=== PATIENT | male | born 1955 | race African-American/Black ===

== ENCOUNTER 2016-05-21 22:43 | Emergency (ER) | payer MEDICARE, MEDICAID ==
[~2016-05-21 22:43] MED LIST: /GUAIMAX PO; BABY81CH PO; HYDR7.5T33 PO; LISI5TAB PO; NABU-42 PO; NASA0.057; OLYSIO PO; OMEP40CA2 PO; OXYC15TA76 PO; OXYC30TA84 PO; OXYCODONE PO; PEPT262T2 PO; SOVALDI PO; VITA50003 PO; VOLT1GEL2 TOP; [UNRECOGNIZED DRUG - CODE] PO; vitamin d2 PO
[2016-05-21] MEDS ORDERED: KETOROLAC 30 MG/ML VIAL (J1885) As Ordered ONE (23:37)
[2016-05-21] MEDS ORDERED: METHOCARBAMOL 1,000 MG/10 ML VIAL (J2800) As Ordered ONE (23:37)
--- NOTE | 2016-05-22 01:00 | REPUSA ---
CLINICAL HISTORY: Neck pain. TECHNIQUE: Multiple axial images were obtained through the cervical spine. Images were also reconstru cted in coronal and sagittal planes. The study was performed without IV contrast. COMMENTS: Unremarkable cervical fusion metallic hardware. There is no fracture or spondylolisthesis visualized. The paraspinal soft tissues are unremarkable. T here are no lytic or blastic lesions. Straightening of cervical lordosis is seen, suggesting muscular spasm. There is evidence of minimal m ultilevel disk disease, demonstrated by moderate osteophytosis and endplate sclerosis. IMPRESSION: No acute traumatic pathology. No change from the prior exam of 09/20/2012. Thank you for your kind referral of this patient.
--- NOTE | 2016-05-22 01:22 | EDDOCDS ---
Physician Documentation [facility] Name: Xu Xiao Age: 61 yrs Sex: Male : 1955 Arrival Date: 05/21/2016 Time: 22:43 Bed I5 / M5 Private MD: Liat Anderson C Disposition: 05/22/16 01:08 Discharged to Home/Self Care. Impression: Strain of muscle, fascia and tendon at neck level. - Condition is Stable. - Discharge Instructions: Soft Tissue Injury of the Neck. - Prescriptions for Robaxin- 750 750 mg Oral Tablet - take 1 tablet by ORAL route every 6 hours As needed; 40 tablet. etodolac 200 mg Oral Capsule - take 1 capsule by ORAL route 3 times per day; 30 capsule. - Medication Reconciliation, Local Pharmacy Hours form. - Follow up: Liat Anderson; When: Call to arrange an appointment; Reason: Further diagnostic work-up, Recheck today's complaints, Continuance of care. - Problem is an acute exacerbation. - Symptoms are unchanged. Historical: - Allergies: Bactrim; Chocolate; - Home Meds: 1. lisinopril 20 mg Oral tab 1 tab once daily 2. Prilosec OTC 20 mg oral TbEC - PMHx: GERD; Hypertension; - PSHx: neck surgery; - Social history: Smoking status: Patient uses tobacco products, current some day smoker. No barriers to communication noted, The patient speaks fluent Swedish. - Family history: Not pertinent. - : The pt / caregiver states he / she is not on anticoagulants. Home medication list is obtained from the patient. - Exposure Risk Screening:: None identified. Vital Signs: 05/21 22:44 BP 173 / 76; Pulse 69; Resp 18 S; Temp 98.0(O); Pulse Ox 99% on R/A; Weight 78.02 kg / gr2 172 lbs (R); Height 5 ft. 8 in. (172.72 cm) (R); Pain 6/10; 05/22 01:09 BP 150 / 70; Pulse 60; Resp 18; Temp 98.4(O); Pulse Ox 99% on R/A; Pain 0/10; jmb 05/21 22:44 Body Mass Index 26.15 (78.02 kg, 172.72 cm) gr2 MDM: 02/15 23:20 ketorolac 30 mg IM once ordered. btw 23:20 Robaxin 250 mg IM once ordered. btw 23:21 CT Spine,Cervical W/o Contrast Ordered. EDMS 23:39 Financial registration complete. pm4 23:48 [facility] Payment Agreement was scanned into [employer] and attached to record. pm4 Administered Medications: 23:43 Drug: ketorolac 30 mg [ketorolac 30 mg/mL (1 mL) injection solution (1 mL)] Route: IM; jmb Site: left deltoid; 05/22 01:05 Follow up: Response: Pain is resolved [facility] 05/21 23:43 Drug: Robaxin 250 mg [Robaxin 100 mg/mL injection solution (2.5 mL)] Route: IM; Site: jmb right gluteus; 05/22 01:04 Follow up: Response: Pain is resolved [facility] Signatures: Dispatcher [employer] EDMS Domenico Cummings PA PA btw Сергей Black RN RN jmb Carlene Moffett RN RN ms18 Lester Bull, Reg Reg pm4 The chart was reviewed and I authenticate all verbal orders and agree with the evaluation and treatment provided.Attachments: 05/21 23:48 [facility] Payment Agreement pm4 MTDD
--- NOTE | 2016-05-22 01:22 | EDDOCDS ---
Nurse's Notes [facility] Name: Xu Xiao Age: 61 yrs Sex: Male : 1955 Arrival Date: 05/21/2016 Time: 22:43 Bed I5 / M5 Private MD: Liat Anderson C Diagnosis: Strain of muscle, fascia and tendon at neck level Presentation: 05/21 22:54 Presenting complaint: Patient states: that he slipped in some ice around 1400 today and ms18 started to feel pain in his neck tonight. Pt states that in 2006 he had surgery to have a gavino placed in his neck. Risk Factors No acute neurological deficit is noted. Adult Sepsis Screening: The patient does not have new or worsening altered mentation. Patient's respiratory rate is less than 22. Systolic blood pressure is greater than 100. Patient has a qSOFA score of 0- Negative Sepsis Screen. Suicide/Homicide risk assessment- the patient denies having any suicidal and/or homicidal ideations and does not present with any other emotional, behavioral or mental health complaints. Status: Patient is not a environmental services lead or dependent. Transition of care: patient was not received from another setting of care. 22:54 Method Of Arrival: Walkin/Carried/Asstd ms18 22:59 Acuity: ANGELINA Level 4 ms18 Triage Assessment: 22:59 General: Appears in no apparent distress, comfortable, Behavior is appropriate for age, ms18 cooperative. Pain: Location: neck Pain currently is 10 out of 10 on a pain scale. HIV screening NA for this visit Offered previously. Neurological: Level of Consciousness is awake, alert, obeys commands, Oriented to person, place, time. Respiratory: No deficits noted. Derm: Skin is pink, warm & dry. Musculoskeletal: Reports pain in neck. Historical: - Allergies: Bactrim; Chocolate; - Home Meds: 1. lisinopril 20 mg Oral tab 1 tab once daily 2. Prilosec OTC 20 mg oral TbEC - PMHx: GERD; Hypertension; - PSHx: neck surgery; - Social history: Smoking status: Patient uses tobacco products, current some day smoker. No barriers to communication noted, The patient speaks fluent Uzbek. - Family history: Not pertinent. - : The pt / caregiver states he / she is not on anticoagulants. Home medication list is obtained from the patient. - Exposure Risk Screening:: None identified. Screenin/16 00:02 Screening information is obtained from the patient. Fall risk: No risks identified. jmb Assistance ADL's: requires no assistance with activities of daily living. Abuse/DV Screen: The patient / caregiver reports he/she is: not in a situation that causes fear, pain or injury. Nutritional screening: No deficits noted. Advance Directives: Currently, there is no health care proxy. There is no active DNR order. There is no living will. There is no Power of Animal Care Supervisor. home support is adequate. Assessment: 00:02 General: Appears in no apparent distress, Behavior is appropriate for age, cooperative. jmb Pain: Location: neck Pain currently is 8 out of 10 on a pain scale. Neurological: Level of Consciousness is awake, alert, obeys commands, Oriented to person, place, time, Speech is slurred, Facial symmetry appears normal, Facial symmetry: tongue is midline. Cardiovascular: Capillary refill < 3 seconds Heart tones present Pulses are all present. Rhythm is regular. Respiratory: Airway is patent Respiratory effort is even, unlabored, Respiratory pattern is regular, symmetrical, Breath sounds are clear bilaterally. GI: Abdomen is non- distended Bowel sounds present X 4 quads. Abd is soft X 4 quads. Derm: Skin is normal. Musculoskeletal: Range of motion intact in all extremities. 00:56 General: Appears in no apparent distress, comfortable, Behavior is appropriate for age, jmb cooperative. Neurological: Level of Consciousness is awake, alert, obeys commands, Oriented to person, place, time. Respiratory: Airway is patent Respiratory effort is even, unlabored, Respiratory pattern is regular, symmetrical. 01:09 General: Patient instructed on discharge. Patient asked if there were any questions [facility] regarding discharge, patient stated no. Patient signed discharge instructions. Patient discharged in stable condition. . Vital Signs: 05/21 22:44 BP 173 / 76; Pulse 69; Resp 18 S; Temp 98.0(O); Pulse Ox 99% on R/A; Weight 78.02 kg gr2 (R); Height 5 ft. 8 in. (172.72 cm) (R); Pain 6/10; 05/22 01:09 BP 150 / 70; Pulse 60; Resp 18; Temp 98.4(O); Pulse Ox 99% on R/A; Pain 0/10; jmb 05/21 22:44 Body Mass Index 26.15 (78.02 kg, 172.72 cm) gr2 Vitals: 05/21 22:44 Log In Time: May 21, 2016 at 22:44. gr2 ED Course: 22:44 Patient visited by Penny Mejia. gr2 22:44 Liat Anderson is Private Physician. gr2 22:44 Patient moved to Waiting gr2 22:47 Patient visited by Penny Mejia. gr2 22:47 Patient moved to Pre RCE gr2 23:00 Triage Initiated ms18 23:00 Patient moved to Triage 1 ms18 23:12 Domenico Cummings PA is PHCP. btw 23:12 Markie Bailey DO is Attending Physician. btw 23:12 Patient visited by Domenico Cummings PA. btw 23:26 Patient moved to I5 / jmb 23:48 [facility] Payment Agreement was scanned into [employer] and attached to record. pm4 05/22 00:02 The patient / caregiver is instructed regarding the plan of care and ED course. jmb 00:02 No IV's were initiated during this patient's visit. No procedures done that require jmb assistance. 00:04 Patient visited by Сергей Black RN. jmb 00:56 Patient visited by Сергей Black RN. jmb 01:08 Liat Anderson is Referral Physician. btw Administered Medications: 05/21 23:43 Drug: ketorolac 30 mg [ketorolac 30 mg/mL (1 mL) injection solution (1 mL)] Route: IM; jmb Site: left deltoid; 05/22 01:05 Follow up: Response: Pain is resolved b 05/21 23:43 Drug: Robaxin 250 mg [Robaxin 100 mg/mL injection solution (2.5 mL)] Route: IM; Site: jmb right gluteus; 05/22 01:04 Follow up: Response: Pain is resolved jmb Order Results: There are currently no results for this order. Outcome: 00:02 Discharge Assessment: Patient awake, alert and oriented x 3. No cognitive and/or jmb functional deficits noted. Patient verbalized understanding of disposition instructions. Patient awake and alert. obeys commands, Oriented to person, place and time. Patient verbalized understanding of disposition instructions. Patient has no functional deficits. patient administered narcotics - no. 01:08 Discharge ordered by Provider. btw 01:09 The following High Risk Discharge criteria are identified: None. Discharged to home kathy ambulatory. Condition: stable Condition: improved. Discharge instructions given to patient, Instructed on discharge instructions, follow up and referral plans. medication usage, Demonstrated understanding of instructions, medications, Pt was receptive of discharge instructions/ teaching. Prescriptions given X 2. CT Study completed. Property sent home with patient. 01:21 Patient left the ED. kathy Signatures: Domenico Cummings PA PA btw Penny Mejia gr2 Сергей BlackRN RN Carlene Strange RN RN ms18 Lester Bull, Reg Reg pm4 GWYN
--- NOTE | 2016-05-24 02:22 | EDDOCDS ---
Physician Documentation [facility] Name: Xu Xiao Age: 61 yrs Sex: Male : 1955 Arrival Date: 05/21/2016 Time: 22:43 Bed I5 / M5 Private MD: Liat Anderson C Disposition: 05/22/16 01:08 Discharged to Home/Self Care. Impression: Strain of muscle, fascia and tendon at neck level. - Condition is Stable. - Discharge Instructions: Soft Tissue Injury of the Neck. - Prescriptions for Robaxin- 750 750 mg Oral Tablet - take 1 tablet by ORAL route every 6 hours As needed; 40 tablet. etodolac 200 mg Oral Capsule - take 1 capsule by ORAL route 3 times per day; 30 capsule. - Medication Reconciliation, Local Pharmacy Hours form. - Follow up: Liat Anderson; When: Call to arrange an appointment; Reason: Further diagnostic work-up, Recheck today's complaints, Continuance of care. - Problem is an acute exacerbation. - Symptoms are unchanged. Historical: - Allergies: Bactrim; Chocolate; - Home Meds: 1. lisinopril 20 mg Oral tab 1 tab once daily 2. Prilosec OTC 20 mg oral TbEC - PMHx: GERD; Hypertension; - PSHx: neck surgery; - Social history: Smoking status: Patient uses tobacco products, current some day smoker. No barriers to communication noted, The patient speaks fluent Tuvaluan. - Family history: Not pertinent. - : The pt / caregiver states he / she is not on anticoagulants. Home medication list is obtained from the patient. - Exposure Risk Screening:: None identified. Vital Signs: 05/21 22:44 BP 173 / 76; Pulse 69; Resp 18 S; Temp 98.0(O); Pulse Ox 99% on R/A; Weight 78.02 kg / gr2 172 lbs (R); Height 5 ft. 8 in. (172.72 cm) (R); Pain 6/10; 05/22 01:09 BP 150 / 70; Pulse 60; Resp 18; Temp 98.4(O); Pulse Ox 99% on R/A; Pain 0/10; jmb 05/21 22:44 Body Mass Index 26.15 (78.02 kg, 172.72 cm) gr2 MDM: 02/15 23:20 ketorolac 30 mg IM once ordered. btw 23:20 Robaxin 250 mg IM once ordered. btw 23:21 CT Spine,Cervical W/o Contrast Ordered. EDMS 23:39 Financial registration complete. pm4 23:48 [facility] Payment Agreement was scanned into [employer] and attached to record. pm4 05/22 10:41 T-Sheet-- Draft Copy was scanned into [employer] and attached to record. gb Administered Medications: 05/21 23:43 Drug: ketorolac 30 mg [ketorolac 30 mg/mL (1 mL) injection solution (1 mL)] Route: IM; b Site: left deltoid; 05/22 01:05 Follow up: Response: Pain is resolved [facility] 05/21 23:43 Drug: Robaxin 250 mg [Robaxin 100 mg/mL injection solution (2.5 mL)] Route: IM; Site: jmb right gluteus; 05/22 01:04 Follow up: Response: Pain is resolved [facility] Signatures: Dispatcher [employer] EDMS Ana Paula Mcbride, Reg Reg gb Domenico Cummings PA PA btw Сергей BlackRN RN jmb Carlene Moffett RN RN ms18 Lester Bull, Reg Reg pm4 The chart was reviewed and I authenticate all verbal orders and agree with the evaluation and treatment provided.Attachments: 05/21 23:48 [facility] Payment Agreement pm4 05/22 10:41 T-Sheet-- Draft Copy gb Chart Complete MTDD
--- NOTE | 2016-05-24 02:22 | EDDOCDS ---
Physician Documentation [facility] Name: Xu Xiao Age: 61 yrs Sex: Male : 1955 Arrival Date: 05/21/2016 Time: 22:43 Bed I5 / M5 Private MD: Liat Anderson C Disposition: 05/22/16 01:08 Discharged to Home/Self Care. Impression: Strain of muscle, fascia and tendon at neck level. - Condition is Stable. - Discharge Instructions: Soft Tissue Injury of the Neck. - Prescriptions for Robaxin- 750 750 mg Oral Tablet - take 1 tablet by ORAL route every 6 hours As needed; 40 tablet. etodolac 200 mg Oral Capsule - take 1 capsule by ORAL route 3 times per day; 30 capsule. - Medication Reconciliation, Local Pharmacy Hours form. - Follow up: Liat Anderson; When: Call to arrange an appointment; Reason: Further diagnostic work-up, Recheck today's complaints, Continuance of care. - Problem is an acute exacerbation. - Symptoms are unchanged. Historical: - Allergies: Bactrim; Chocolate; - Home Meds: 1. lisinopril 20 mg Oral tab 1 tab once daily 2. Prilosec OTC 20 mg oral TbEC - PMHx: GERD; Hypertension; - PSHx: neck surgery; - Social history: Smoking status: Patient uses tobacco products, current some day smoker. No barriers to communication noted, The patient speaks fluent Grenadian. - Family history: Not pertinent. - : The pt / caregiver states he / she is not on anticoagulants. Home medication list is obtained from the patient. - Exposure Risk Screening:: None identified. Vital Signs: 05/21 22:44 BP 173 / 76; Pulse 69; Resp 18 S; Temp 98.0(O); Pulse Ox 99% on R/A; Weight 78.02 kg / gr2 172 lbs (R); Height 5 ft. 8 in. (172.72 cm) (R); Pain 6/10; 05/22 01:09 BP 150 / 70; Pulse 60; Resp 18; Temp 98.4(O); Pulse Ox 99% on R/A; Pain 0/10; jmb 05/21 22:44 Body Mass Index 26.15 (78.02 kg, 172.72 cm) gr2 MDM: 02/15 23:20 ketorolac 30 mg IM once ordered. btw 23:20 Robaxin 250 mg IM once ordered. btw 23:21 CT Spine,Cervical W/o Contrast Ordered. EDMS 23:39 Financial registration complete. pm4 23:48 [facility] Payment Agreement was scanned into [employer] and attached to record. pm4 05/22 10:41 T-Sheet-- Draft Copy was scanned into [employer] and attached to record. gb Administered Medications: 05/21 23:43 Drug: ketorolac 30 mg [ketorolac 30 mg/mL (1 mL) injection solution (1 mL)] Route: IM; b Site: left deltoid; 05/22 01:05 Follow up: Response: Pain is resolved [facility] 05/21 23:43 Drug: Robaxin 250 mg [Robaxin 100 mg/mL injection solution (2.5 mL)] Route: IM; Site: jmb right gluteus; 05/22 01:04 Follow up: Response: Pain is resolved [facility] Signatures: Dispatcher [employer] EDMS Ana Paula Mcbride, Reg Reg gb Domenico Cummings PA PA btw Сергей BlackRN RN jmb Carlene Mofftet RN RN ms18 Lester Bull, Reg Reg pm4 The chart was reviewed and I authenticate all verbal orders and agree with the evaluation and treatment provided.Attachments: 05/21 23:48 [facility] Payment Agreement pm4 05/22 10:41 T-Sheet-- Draft Copy gb Chart Complete MTDD
--- NOTE | 2016-05-24 02:22 | EDDOCDS ---
Nurse's Notes [facility] Name: Xu Xiao Age: 61 yrs Sex: Male : 1955 Arrival Date: 05/21/2016 Time: 22:43 Bed I5 / M5 Private MD: Liat Anderson C Diagnosis: Strain of muscle, fascia and tendon at neck level Presentation: 05/21 22:54 Presenting complaint: Patient states: that he slipped in some ice around 1400 today and ms18 started to feel pain in his neck tonight. Pt states that in 2006 he had surgery to have a gavino placed in his neck. Risk Factors No acute neurological deficit is noted. Adult Sepsis Screening: The patient does not have new or worsening altered mentation. Patient's respiratory rate is less than 22. Systolic blood pressure is greater than 100. Patient has a qSOFA score of 0- Negative Sepsis Screen. Suicide/Homicide risk assessment- the patient denies having any suicidal and/or homicidal ideations and does not present with any other emotional, behavioral or mental health complaints. Status: Patient is not a financial services intern or dependent. Transition of care: patient was not received from another setting of care. 22:54 Method Of Arrival: Walkin/Carried/Asstd ms18 22:59 Acuity: ANGELINA Level 4 ms18 Triage Assessment: 22:59 General: Appears in no apparent distress, comfortable, Behavior is appropriate for age, ms18 cooperative. Pain: Location: neck Pain currently is 10 out of 10 on a pain scale. HIV screening NA for this visit Offered previously. Neurological: Level of Consciousness is awake, alert, obeys commands, Oriented to person, place, time. Respiratory: No deficits noted. Derm: Skin is pink, warm & dry. Musculoskeletal: Reports pain in neck. Historical: - Allergies: Bactrim; Chocolate; - Home Meds: 1. lisinopril 20 mg Oral tab 1 tab once daily 2. Prilosec OTC 20 mg oral TbEC - PMHx: GERD; Hypertension; - PSHx: neck surgery; - Social history: Smoking status: Patient uses tobacco products, current some day smoker. No barriers to communication noted, The patient speaks fluent Uzbek. - Family history: Not pertinent. - : The pt / caregiver states he / she is not on anticoagulants. Home medication list is obtained from the patient. - Exposure Risk Screening:: None identified. Screenin/16 00:02 Screening information is obtained from the patient. Fall risk: No risks identified. jmb Assistance ADL's: requires no assistance with activities of daily living. Abuse/DV Screen: The patient / caregiver reports he/she is: not in a situation that causes fear, pain or injury. Nutritional screening: No deficits noted. Advance Directives: Currently, there is no health care proxy. There is no active DNR order. There is no living will. There is no Power of Collar Closer Lockstitch. home support is adequate. Assessment: 00:02 General: Appears in no apparent distress, Behavior is appropriate for age, cooperative. jmb Pain: Location: neck Pain currently is 8 out of 10 on a pain scale. Neurological: Level of Consciousness is awake, alert, obeys commands, Oriented to person, place, time, Speech is slurred, Facial symmetry appears normal, Facial symmetry: tongue is midline. Cardiovascular: Capillary refill < 3 seconds Heart tones present Pulses are all present. Rhythm is regular. Respiratory: Airway is patent Respiratory effort is even, unlabored, Respiratory pattern is regular, symmetrical, Breath sounds are clear bilaterally. GI: Abdomen is non- distended Bowel sounds present X 4 quads. Abd is soft X 4 quads. Derm: Skin is normal. Musculoskeletal: Range of motion intact in all extremities. 00:56 General: Appears in no apparent distress, comfortable, Behavior is appropriate for age, jmb cooperative. Neurological: Level of Consciousness is awake, alert, obeys commands, Oriented to person, place, time. Respiratory: Airway is patent Respiratory effort is even, unlabored, Respiratory pattern is regular, symmetrical. 01:09 General: Patient instructed on discharge. Patient asked if there were any questions [facility] regarding discharge, patient stated no. Patient signed discharge instructions. Patient discharged in stable condition. . Vital Signs: 05/21 22:44 BP 173 / 76; Pulse 69; Resp 18 S; Temp 98.0(O); Pulse Ox 99% on R/A; Weight 78.02 kg gr2 (R); Height 5 ft. 8 in. (172.72 cm) (R); Pain 6/10; 05/22 01:09 BP 150 / 70; Pulse 60; Resp 18; Temp 98.4(O); Pulse Ox 99% on R/A; Pain 0/10; b 05/21 22:44 Body Mass Index 26.15 (78.02 kg, 172.72 cm) gr2 Vitals: 05/21 22:44 Log In Time: May 21, 2016 at 22:44. gr2 ED Course: 22:44 Patient visited by Penny Mejia. gr2 22:44 Liat Anderson is Private Physician. gr2 22:44 Patient moved to Waiting gr2 22:47 Patient visited by Penny Mejia. gr2 22:47 Patient moved to Pre RCE gr2 23:00 Triage Initiated ms18 23:00 Patient moved to Triage 1 ms18 23:12 Domenico Cummings PA is PHCP. btw 23:12 Markie Bailey DO is Attending Physician. btw 23:12 Patient visited by Domenico Cummings PA. btw 23:26 Patient moved to I5 / jmb 23:48 [facility] Payment Agreement was scanned into [email or web address] and attached to record. pm4 05/22 00:02 The patient / caregiver is instructed regarding the plan of care and ED course. jmb 00:02 No IV's were initiated during this patient's visit. No procedures done that require b assistance. 00:04 Patient visited by Сергей Black RN. jmb 00:56 Patient visited by Сергей Black RN. jmb 01:08 Liat Anderson is Referral Physician. btw 01:22 CT Spine,Cervical W/o Contrast Returned. EDMS 10:41 T-Sheet-- Draft Copy was scanned into [email or web address] and attached to record. gb Administered Medications: 05/21 23:43 Drug: ketorolac 30 mg [ketorolac 30 mg/mL (1 mL) injection solution (1 mL)] Route: IM; jmb Site: left deltoid; 05/22 01:05 Follow up: Response: Pain is resolved [facility] 05/21 23:43 Drug: Robaxin 250 mg [Robaxin 100 mg/mL injection solution (2.5 mL)] Route: IM; Site: jmb right gluteus; 05/22 01:04 Follow up: Response: Pain is resolved b Order Results: Radiology Order: CT Spine,Cervical W/o Contrast Test: CT Spine,Cervical W/o Contrast REASON FOR EXAMINATION: Trauma; ; CLINICAL HISTORY: Neck pain.; TECHNIQUE: Multiple axial images were obtained through the cervical spine. Images were also reconstru; cted in coronal and sagittal planes. The study was performed without IV contrast.; COMMENTS:; Unremarkable cervical fusion metallic hardware.; There is no fracture or spondylolisthesis visualized. The paraspinal soft tissues are unremarkable. T; here are no lytic or blastic lesions.; Straightening of cervical lordosis is seen, suggesting muscular spasm. There is evidence of minimal m; ultilevel disk disease, demonstrated by moderate osteophytosis and endplate sclerosis.; IMPRESSION:; No acute traumatic pathology.; No change from the prior exam of 09/20/2012.; Thank you for your kind referral of this patient.; ; Outcome: 00:02 Discharge Assessment: Patient awake, alert and oriented x 3. No cognitive and/or jmb functional deficits noted. Patient verbalized understanding of disposition instructions. Patient awake and alert. obeys commands, Oriented to person, place and time. Patient verbalized understanding of disposition instructions. Patient has no functional deficits. patient administered narcotics - no. 01:08 Discharge ordered by Provider. btw 01:09 The following High Risk Discharge criteria are identified: None. Discharged to home jmb ambulatory. Condition: stable Condition: improved. Discharge instructions given to patient, Instructed on discharge instructions, follow up and referral plans. medication usage, Demonstrated understanding of instructions, medications, Pt was receptive of discharge instructions/ teaching. Prescriptions given X 2. CT Study completed. Property sent home with patient. 01:21 Patient left the ED. [facility] Signatures: Dispatcher [employer] EDMS Ana Paula Mcbride, Reg Reg gb Domenico Cummings PA PA btw Penny Mejia gr2 Сергей Black RN RN Carlene Strange RN RN ms18 Lester Bull, Reg Reg pm4 Chart Complete MTDD
== END 2016-05-22 01:21 | disposition home or self-care (01) ==
LOC: M ED 22:43
DX: S16.1XXA Strain of muscle, fascia and tendon at neck level, initial encounter (principal); W01.10XA Fall on same level from slipping, tripping and stumbling with subsequent striking against unspecified object, initial encounter; Y92.019 Unspecified place in single-family (private) house as the place of occurrence of the external cause; Y93.89 Activity, other specified; Y99.9 Unspecified external cause status; K21.9 Gastro-esophageal reflux disease without esophagitis; I10 Essential (primary) hypertension; Z72.0 Tobacco use; Z79.899 Other long term (current) drug therapy; Z88.1 Allergy status to other antibiotic agents; Z91.018 Allergy to other foods
CPT/HCPCS: 72125; 96372; 99284; J1885; J2800

== ENCOUNTER → 2017-03-25 | Outpatient (REF) | payer MEDICARE, MEDICAID ==
[~2017-03-25] MED LIST changes: +AMLO5TAB2; +ISON300T4; +VITA1CAP40 PO; -VITA50003 PO; +Vitamin
[2017-03-25 14:33] LABS: BASO # 0.1 10^3/uL (0.0-0.2); BASO % 1.1 % (0.0-1.0); EOS # 0.1 10^3/uL (0.0-0.50); IMMATURE GRANULOCYTE % 0.2 % (0-0); LYMPH # 1.6 10^3/uL (1.5-4.5); LYMPH % 36.1 % (24.0-44.0); MEAN CORPUSCULAR HEMOGLOBIN 26.8 pg (27.0-33.0); MEAN CORPUSCULAR HGB CONC 32.6 g/dl (32.0-36.5); MEAN CORPUSCULAR VOLUME 82.2 fl (80.0-96.0); MONO # 0.5 10^3/uL (0.0-0.8); MONO % 10.7 % (0.0-5.0); NEUTROPHILS # 2.1 10^3/uL (1.8-7.7); NEUTROPHILS % 48.9 % (36.0-66.0); PLATELET COUNT, AUTOMATED 281 10^3/uL (150-450); RED CELL DISTRIBUTION WIDTH 13.3 % (11.5-14.5); WHITE BLOOD COUNT 4.4 10^3/uL (4.0-10.0)
[2017-03-25 15:26] LABS: ALBUMIN 4.1 GM/DL (3.2-5.2); ALBUMIN/GLOBULIN RATIO 1.11 (1.00-1.93); ALKALINE PHOSPHATASE 54 U/L (45-117); ALT/SGPT 32 U/L (12-78); ANION GAP 6 MEQ/L (8-16); AST/SGOT 28 U/L (7-37); BILIRUBIN,TOTAL 0.5 MG/DL (0.2-1.0); BLOOD UREA NITROGEN 21 MG/DL (7-18); CALCIUM LEVEL 8.6 MG/DL (8.8-10.2); CARBON DIOXIDE LEVEL 29 MEQ/L (21-32); CHLORIDE LEVEL 105 MEQ/L (98-107); CHOLESTEROL LEVEL 122 MG/DL (<200); CREATININE FOR GFR 1.44 MG/DL (0.70-1.30); GLOMERULAR FILTRATION RATE > 60.0 (>49); GLUCOSE, FASTING 97 MG/DL (80-110); POTASSIUM SERUM 4.2 MEQ/L (3.5-5.1); SODIUM LEVEL 140 MEQ/L (136-145); TOTAL PROTEIN 7.8 GM/DL (6.4-8.2); TRIGLYCERIDES LEVEL 22 MG/DL (<150)
[2017-03-27 10:16] LABS: HEPATITIS C QUANTITATION HCV Not Detected IU/mL (.)
== END ==
LOC: M LAB REF 13:34
PROVIDERS: ATTEND Nurse Practitioner Adult Health
DX: B17.10 Acute hepatitis C without hepatic coma (principal); I10 Essential (primary) hypertension; Z79.899 Other long term (current) drug therapy

== ENCOUNTER 2017-03-29 00:13 | Emergency (ER) | payer MEDICARE, MEDICAID ==
[~2017-03-29] VITALS: Ht 170.2 cm; Wt 77.3 kg
[~2017-03-29 00:13] MED LIST changes: -AMLO5TAB2; -ISON300T4; -Vitamin
[2017-03-29 00:14] VITALS: BP 156/96
[2017-03-29] MEDS ORDERED: Vitamin (00:21)
[2017-03-29] MEDS ORDERED: ISON300T4 (00:21)
[2017-03-29] MEDS ORDERED: AMLO5TAB2 (00:21)
== END 2017-03-29 01:03 | disposition home or self-care (01) ==
LOC: M ED 00:13
DX: S31.134A Puncture wound of abdominal wall without foreign body, left lower quadrant without penetration into peritoneal cavity, initial encounter (principal); Z72.0 Tobacco use; W26.0XXA Contact with knife, initial encounter; Y92.099 Unspecified place in other non-institutional residence as the place of occurrence of the external cause; Y93.G3 Activity, cooking and baking; Y99.9 Unspecified external cause status

== ENCOUNTER → 2020-09-06 | Outpatient (CLI) | payer MEDICAID, MEDICARE ==
[~2020-09-06] MED LIST changes: +AMLO1TAB24; +ISON300T18; -OMEP40CA2 PO; +OMEP40CA97 PO; +OXYC-1 PO; -OXYC15TA76 PO; -VITA1CAP40 PO; +VITA50005 PO; +Vitamin
--- NOTE | 2020-09-06 10:59 | REP ---
INDICATION: ACUTE HEP C COMPARISON: 10/14/2012 TECHNIQUE: Real time zimmerman scale ultrasound examination using curved array transducer. FINDINGS: Liver is normal in contour, size, and echogenicity without focal hepatic lesions identified. Pancreas is incompletely evaluated due to interposed bowel gas. The gallbladder is normal and without gallstones, wall thickening, or pericholecystic fluid. No biliary ductal dilatation is appreciated and the common bile duct measures 3.0 mm diameter. Right kidney is normal in reniform shape without hydronephrosis and measures 10.4 x 4.2 x 4.3 cm. No ascites in the visualized right upper quadrant. IMPRESSION: Normal limited right upper quadrant ultrasound <Electronically signed by Reuben Spangler > 09/06/20 [id number]
== END ==
LOC: M RAD 10:16
PROVIDERS: ATTEND Pediatrics
DX: B17.10 Acute hepatitis C without hepatic coma (principal)

== ENCOUNTER → 2020-09-24 | Outpatient (CLI) | payer OTHER ==
[~2020-09-24] MED LIST changes: +OMEP40CA4 PO; -OMEP40CA97 PO
--- NOTE | 2020-09-24 14:48 | REP ---
INDICATION: TUBERCULOSIS. COMPARISON: 02/11/2016 FINDINGS: The superior mediastinal structures are midline. The cardiac silhouette is unremarkable in size, shape, and position. The diaphragmatic surfaces of the lungs are regular, and the costophrenic angles are clear. The pulmonary montiel are clear. The imaged osseous structures are unchanged. Lower cervical and upper thoracic spinal fixation is again noted status quo. IMPRESSION: There is no acute cardiopulmonary disease. <Electronically signed by Antonio Stack > 09/24/20 [id number]
== END ==
LOC: M WUC 14:16
PROVIDERS: ATTEND Surgery
DX: A15.0 Tuberculosis of lung (principal)

== ENCOUNTER → 2022-03-05 | Outpatient (REF) | payer MEDICARE, MEDICAID ==
[2022-03-05 18:14] LABS: BASO # 0.1 10^3/uL (0.0-0.2); BASO % 1.2 % (0.0-1.0); EOS # 0.1 10^3/uL (0.0-0.5); EOS % 2.8 % (0.0-3.0); HEMATOCRIT 40.3 % (42.0-52.0); HEMOGLOBIN 12.8 g/dl (13.5-17.5); LYMPH # 1.5 10^3/uL (1.5-5.0); LYMPH % 30.1 % (24.0-44.0); MEAN CORPUSCULAR HEMOGLOBIN 26.9 pg (27.0-33.0); MEAN CORPUSCULAR HGB CONC 31.8 g/dl (32.0-36.5); MEAN CORPUSCULAR VOLUME 84.8 fl (80.0-96.0); MONO # 0.6 10^3/uL (0.0-0.8); MONO % 11.6 % (2.0-8.0); NEUTROPHILS # 2.8 10^3/uL (1.5-8.5); NEUTROPHILS % 54.1 % (36.0-66.0); PLATELET COUNT, AUTOMATED 259 10^3/uL (150-450); RED BLOOD COUNT 4.75 10^6/uL (4.30-6.10); WHITE BLOOD COUNT 5.1 10^3/uL (4.0-10.0)
[2022-03-05 22:27] LABS: ALBUMIN 3.9 G/DL (3.2-5.2); ALKALINE PHOSPHATASE 64 U/L (46-116); ALT/SGPT 21 U/L (7.0-40); AST/SGOT 20 U/L (<34); BILIRUBIN,DIRECT 0.1 MG/DL (<0.4); BILIRUBIN,TOTAL 0.3 MG/DL (0.3-1.2); TOTAL PROTEIN 7.2 G/DL (5.7-8.2)
[2022-03-05 22:30] LABS: THYROGLOBULIN ANTIBODY < 15.0 U/ML (<60.0)
[2022-03-05 22:31] LABS: FREE T4 1.34 NG/DL (0.89-1.76); THYROID PEROXIDASE ANTIBODY < 28.0 U/ML (<60.0)
[2022-03-05 22:36] LABS: THYROID STIMULATING HORMONE 0.577 uIU/ML (0.55-4.78)
== END ==
LOC: M LAB REF 17:31
PROVIDERS: ATTEND Pediatrics
DX: R79.89 Other specified abnormal findings of blood chemistry (principal); F10.10 Alcohol abuse, uncomplicated

== ENCOUNTER → 2022-03-14 | Outpatient (CLI) | payer MEDICARE, MEDICAID | LOC: M RAD 15:37 | PROVIDERS: ATTEND Pediatrics | DX: R79.89 Other specified abnormal findings of blood chemistry (principal) ==

== ENCOUNTER → 2022-04-29 | Outpatient (CLI) | payer MEDICAID | LOC: M LAB 13:01 | PROVIDERS: ATTEND Nurse Practitioner Family | DX: M96.1 Postlaminectomy syndrome, not elsewhere classified (principal) ==

== ENCOUNTER → 2022-05-05 | Outpatient (REF) | payer MEDICARE, MEDICAID ==
[2022-05-05 17:17] LABS: BASO # 0.1 10^3/uL (0.0-0.2); BASO % 1.2 % (0.0-1.0); EOS # 0.1 10^3/uL (0.0-0.5); EOS % 2.7 % (0.0-3.0); HEMATOCRIT 46.1 % (42.0-52.0); HEMOGLOBIN 14.4 g/dl (13.5-17.5); LYMPH # 1.2 10^3/uL (1.5-5.0); LYMPH % 29.2 % (24.0-44.0); MEAN CORPUSCULAR HEMOGLOBIN 26.4 pg (27.0-33.0); MEAN CORPUSCULAR HGB CONC 31.2 g/dl (32.0-36.5); MEAN CORPUSCULAR VOLUME 84.6 fl (80.0-96.0); MONO # 0.5 10^3/uL (0.0-0.8); MONO % 11.3 % (2.0-8.0); NEUTROPHILS # 2.3 10^3/uL (1.5-8.5); NEUTROPHILS % 55.4 % (36.0-66.0); PLATELET COUNT, AUTOMATED 252 10^3/uL (150-450); RED BLOOD COUNT 5.45 10^6/uL (4.30-6.10); WHITE BLOOD COUNT 4.1 10^3/uL (4.0-10.0)
[2022-05-05 17:47] LABS: ALKALINE PHOSPHATASE 72 U/L (46-116); ALT/SGPT 32 U/L (7.0-40); AST/SGOT 27 U/L (<34); BILIRUBIN,DIRECT 0.2 MG/DL (<0.4); BILIRUBIN,TOTAL 0.4 MG/DL (0.3-1.2); BLOOD UREA NITROGEN 16 MG/DL (9-23); CALCIUM LEVEL 9.5 MG/DL (8.3-10.6); CARBON DIOXIDE LEVEL 25 MMOL/L (20-31); CHLORIDE LEVEL 103 MMOL/L (98-107); CHOLESTEROL LEVEL 144 MG/DL (<200); CHOLESTEROL RISK RATIO 2.03 (<5); CREATININE FOR GFR 1.08 MG/DL (0.70-1.30); GLOMERULAR FILTRATION RATE > 60.0 (>49); GLUCOSE, FASTING 83 MG/DL (74-106); HDL CHOLESTEROL 70.6 MG/DL (>40); LDL CHOLESTEROL 64.4 MG/DL (<100); NON-HDL-C 73 MG/DL; POTASSIUM SERUM 4.7 MMOL/L (3.5-5.1); SODIUM LEVEL 136 MMOL/L (136-145); TOTAL PROTEIN 7.7 G/DL (5.7-8.2); TRIGLYCERIDES LEVEL 45 MG/DL (<150)
== END ==
LOC: M LAB REF 16:15
PROVIDERS: ATTEND Pediatrics
DX: F10.10 Alcohol abuse, uncomplicated (principal); I10 Essential (primary) hypertension; E66.3 Overweight; Z12.5 Encounter for screening for malignant neoplasm of prostate
CPT/HCPCS: 80048; 80061; 80076; 82977; 85025; G0103

== ENCOUNTER → 2022-05-19 | Outpatient (CLI) | payer MEDICARE, MEDICAID | LOC: M PLAIMG 10:16 | PROVIDERS: ATTEND Nurse Practitioner Family | DX: M96.1 Postlaminectomy syndrome, not elsewhere classified (principal) ==

== ENCOUNTER → 2022-05-23 | Outpatient (CLI) | payer MEDICARE, MEDICAID | LOC: M PLARAD 08:21 | PROVIDERS: ATTEND Nurse Practitioner Family | DX: M54.12 Radiculopathy, cervical region (principal); M48.02 Spinal stenosis, cervical region ==

== ENCOUNTER → 2022-11-04 | Outpatient (CLI) | payer OTHER, MEDICAID ==
[~2022-11-04] MED LIST changes: +AMLO10TA PO
== END ==
LOC: M RAD 10:35
PROVIDERS: ATTEND Pediatrics
DX: R14.0 Abdominal distension (gaseous) (principal); R93.5 Abnormal findings on diagnostic imaging of other abdominal regions, including retroperitoneum

== ENCOUNTER 2023-12-15 22:14 | Emergency (ER) | payer OTHER, MEDICAID ==
[~2023-12-15] VITALS: Ht 170.2 cm; Wt 68.0 kg
[2023-12-15 22:15] VITALS: BP 168/86; TEMP 97.2; O2SAT 99
== END 2023-12-15 23:50 | disposition left against medical advice (07) ==
LOC: M ED 22:14
DX: Z53.21 Procedure and treatment not carried out due to patient leaving prior to being seen by health care provider (principal)

== ENCOUNTER → 2024-02-17 | Outpatient (CLI) | payer OTHER, MEDICAID | LOC: M RAD 12:27 | PROVIDERS: ATTEND Family Medicine Addiction Medicine | DX: M54.2 Cervicalgia (principal); M85.88 Other specified disorders of bone density and structure, other site; M51.34 Other intervertebral disc degeneration, thoracic region; M43.22 Fusion of spine, cervical region ==

== ENCOUNTER → 2024-09-26 | Outpatient (CLI) | payer OTHER, MEDICAID ==
[~2024-09-26] MED LIST changes: +AMLO-751 PO; -AMLO10TA PO; +HYDR-3490 PO; +ISON1TAB5; -ISON300T18; +LISI40TA10 PO; +OXYC10TA3 PO; +[UNRECOGNIZED DRUG - OTHER]
== END ==
LOC: M EKG 14:42
PROVIDERS: ATTEND Emergency Medicine
DX: I44.1 Atrioventricular block, second degree (principal)

== ENCOUNTER 2024-10-08 08:23 | Emergency (ER) | payer OTHER, MEDICAID ==
[~2024-10-08] VITALS: Ht 170.2 cm; Wt 69.0 kg
[2024-10-08 08:57] LABS: BASO # 0.1 10^3/uL (0.0-0.2); BASO % 1.2 % (0.0-1.0); EOS # 0.1 10^3/uL (0.0-0.5); EOS % 3.3 % (0.0-3.0); LYMPH # 1.6 10^3/uL (1.5-5.0); LYMPH % 37.0 % (24.0-44.0); MONO # 0.4 10^3/uL (0.0-0.8); MONO % 8.9 % (2.0-8.0); NEUTROPHILS # 2.1 10^3/uL (1.5-8.5); NEUTROPHILS % 49.4 % (36.0-66.0); PLATELET COUNT, AUTOMATED 206 10^3/uL (150-450)
[2024-10-08 09:06] LABS: INR 1.14
[2024-10-08 09:18] LABS: CALCIUM LEVEL 9.1 MG/DL (8.3-10.6); CARBON DIOXIDE LEVEL 29.0 MMOL/L (20-31); CHLORIDE LEVEL 106.0 MMOL/L (98-107); CREATININE FOR GFR 1.48 MG/DL (0.70-1.30); GLOMERULAR FILTRATION RATE 51.2 (>49); MAGNESIUM LEVEL 2.1 MG/DL (1.8-2.4); POTASSIUM SERUM 4.3 MMOL/L (3.5-5.1); SODIUM LEVEL 142.0 MMOL/L (136-145)
[2024-10-08 09:21] LABS: FREE T4 1.39 NG/DL (0.89-1.76)
[2024-10-08] MEDS ORDERED: HOME MED LIST COMPLETE! XX SCH (09:45)
[2024-10-08] MEDS: NS (Normal Saline) 0.9% 1,000 ML IV ONE (10:15)
[2024-10-08 11:39] VITALS: BP 160/93
[2024-10-08] MEDS: hydroCHLOROthiazide 25 MG TAB PO SCH (11:39)
[2024-10-08] MEDS: **hydrALAZINE** 50 MG TAB PO SCH (11:39)
[2024-10-08 15:16] VITALS: BP 181/87; O2SAT 100
[2024-10-08 15:31] VITALS: TEMP 98
[2024-10-08] MEDS ORDERED: **hydrALAZINE** 50 MG TAB PO SCH (16:00)
[2024-10-12 19:45] LABS: LYME TOTAL ANTIBODY CIA <= 0.90 Index (<=0.90)
== END 2024-10-08 15:57 | disposition home or self-care (01) ==
LOC: M ED 08:23
DX: I44.39 Other atrioventricular block (principal); I10 Essential (primary) hypertension; F12.10 Cannabis abuse, uncomplicated; Z79.899 Other long term (current) drug therapy; Z88.2 Allergy status to sulfonamides

== ENCOUNTER 2024-10-14 18:05 | Emergency (ER) | payer OTHER, MEDICAID ==
[~2024-10-14] VITALS: Ht 170.2 cm; Wt 69.4 kg
[2024-10-14 19:15] LABS: BASO # 0.0 10^3/uL (0.0-0.2); BASO % 0.9 % (0.0-1.0); EOS # 0.1 10^3/uL (0.0-0.5); EOS % 3.2 % (0.0-3.0); LYMPH # 1.8 10^3/uL (1.5-5.0); LYMPH % 39.9 % (24.0-44.0); MONO # 0.4 10^3/uL (0.0-0.8); MONO % 8.6 % (2.0-8.0); NEUTROPHILS # 2.1 10^3/uL (1.5-8.5); NEUTROPHILS % 47.4 % (36.0-66.0); PLATELET COUNT, AUTOMATED 196 10^3/uL (150-450)
[2024-10-14 19:39] LABS: INR 1.09
[2024-10-14 19:40] LABS: ETHYL ALCOHOL (ETHANOL) < 0.003 % (0.000-0.010)
[2024-10-14 19:42] LABS: CK-MB VALUE MASS 4.4 NG/ML (<3.6); SALICYLATE LEVEL < 3.0 MG/DL (<30)
[2024-10-14 19:44] LABS: ALT/SGPT 23.0 U/L (7.0-40); AST/SGOT 27.0 U/L (<34); CALCIUM LEVEL 8.9 MG/DL (8.3-10.6); CARBON DIOXIDE LEVEL 26.0 MMOL/L (20-31); CHLORIDE LEVEL 108.0 MMOL/L (98-107); CPK CREATINE PHOSPHOKINASE 315.0 U/L (46-171); CREATININE FOR GFR 1.47 MG/DL (0.70-1.30); GLOMERULAR FILTRATION RATE 51.6 (>49); MAGNESIUM LEVEL 2.1 MG/DL (1.8-2.4); MB/CK RELATIVE INDEX 1.39 (< OR =4); POTASSIUM SERUM 4.4 MMOL/L (3.5-5.1); SODIUM LEVEL 144.0 MMOL/L (136-145)
[2024-10-14 19:46] LABS: FREE T4 1.31 NG/DL (0.89-1.76)
[2024-10-14 20:45] LABS: CK-MB VALUE MASS 4.0 NG/ML (<3.6)
[2024-10-14 20:46] LABS: CPK CREATINE PHOSPHOKINASE 280.0 U/L (46-171); MB/CK RELATIVE INDEX 1.42 (< OR =4)
[2024-10-14 21:17] LABS: AMPHETAMINES LEVEL URINE NEGATIVE (NEGATIVE); BARBITURATES URINE NEGATIVE (NEGATIVE); BENZODIAZEPINES URINE NEGATIVE (NEGATIVE)
[2024-10-14 21:18] LABS: METHADONE URINE NEGATIVE (NEGATIVE); OPIATES URINE NEGATIVE (NEGATIVE); PHENCYCLIDINE URINE NEGATIVE (NEGATIVE)
[2024-10-14 21:20] LABS: CANNABINOIDS URINE POSITIVE (NEGATIVE); COCAINE METABOLITE URINE POSITIVE (NEGATIVE)
[2024-10-14 23:15] VITALS: BP 190/73; TEMP 96.7; O2SAT 100
[2024-10-19 20:43] LABS: LYME TOTAL ANTIBODY CIA <= 0.90 Index (<=0.90)
== END 2024-10-14 23:24 | disposition left against medical advice (07) ==
LOC: M ED 18:05
DX: I44.2 Atrioventricular block, complete (principal); R00.1 Bradycardia, unspecified; I25.2 Old myocardial infarction; I10 Essential (primary) hypertension; B18.2 Chronic viral hepatitis C; F17.210 Nicotine dependence, cigarettes, uncomplicated; F12.10 Cannabis abuse, uncomplicated; Z88.2 Allergy status to sulfonamides; Z88.8 Allergy status to other drugs, medicaments and biological substances; Z79.899 Other long term (current) drug therapy; Z53.9 Procedure and treatment not carried out, unspecified reason